=== PATIENT | female | born 1990 | race Caucasian/White ===

== ENCOUNTER 2018-10-11 10:45 | Inpatient (IN) | payer OTHER ==
[~2018-10-11] VITALS: Ht 167.6 cm; Wt 75.7 kg
[2018-10-11] MEDS ORDERED: RINGERS SOLUTION,LACTATED 1,000 ML IV ONE (10:59)
[2018-10-11] MEDS ORDERED: CITRIC ACID/SODIUM CITRATE 30 ML SOLUTION UDCUP PO ONE (11:00)
[2018-10-11] MEDS ORDERED: METOCLOPRAMIDE HCL 5 MG/ML 2 ML VIAL IVP ONE (11:00)
[2018-10-11] MEDS ORDERED: PREN1TAB80 PO (11:02)
[2018-10-11 11:19] VITALS: BP 114/69
[2018-10-11 11:29] LABS: BASOPHILS % (AUTO) 0.6 % (0.0-2.0); EOSINOPHILS % (AUTO) 1.4 % (1.0-6.0); HEMATOCRIT 41.4 % (36-46); HEMOGLOBIN 13.7 g/dL (12.0-16.0); LYMPHOCYTES # (AUTO) 1.5 K/uL (1.0-4.8); LYMPHOCYTES % (AUTO) 24.6 % (22.0-44.0); MEAN CORPUSCULAR HEMOGLOBIN 29.9 pg (26.0-34.0); MEAN CORPUSCULAR VOLUME 91 fL (80-100); MONOCYTES # (AUTO) 0.3 K/uL (0.1-1.0); MONOCYTES % (AUTO) 5.5 % (2.0-9.0); NEUTROPHILS # (AUTO) 4.2 K/uL (1.8-7.7); NEUTROPHILS % (AUTO) 67.9 % (40.0-70.0); PLATELET COUNT (AUTO) 188 K/uL (150-450); RED BLOOD CELL COUNT(AUTO) 4.57 MIL/uL (4.00-5.20); RED CELL DISTRIBUTION WIDTH 13.1 % (11.5-14.5)
[2018-10-11] MEDS ORDERED: OxyCODONE HCL/ACETAMINOPHEN 5-325 MG TABLET PO PRN ×2 (12:15→14:45)
[2018-10-11] MEDS ORDERED: FentaNYL CITRATE-PF 100 MCG/2 ML VIAL IVP PRN (12:15)
[2018-10-11] MEDS ORDERED: DiphenhydrAMINE HCL 50 MG/ML VIAL IVP PRN (12:15)
[2018-10-11] MEDS ORDERED: NALOXONE HCL 0.4 MG/ML VIAL IVP PRN (12:15)
[2018-10-11] MEDS ORDERED: ONDANSETRON HCL 4 MG/2 ML VIAL IVP PRN (12:15)
[2018-10-11] MEDS ORDERED: ONDANSETRON HCL 4 MG/2 ML VIAL ONE (12:21)
[2018-10-11] MEDS ORDERED: KETOROLAC TROMETHAMINE 30 MG/ML VIAL ONE (12:21)
[2018-10-11] MEDS ORDERED: FentaNYL CITRATE-PF 100 MCG/2 ML VIAL ONE (12:21)
[2018-10-11] MEDS ORDERED: MORPHINE SULFATE/PF 1 MG/ML 10 ML AMP ONE (12:21)
[2018-10-11] MEDS ORDERED: MIDAZOLAM HCL 2 MG/2 ML VIAL ONE (12:21)
[2018-10-11] MEDS ORDERED: DEXAMETHASONE SOD PHOS 4 MG/ML VIAL ONE (12:21)
[2018-10-11] MEDS ORDERED: BUPIVACAINE HCL/DEX-WATER/PF 0.75% 2 ML AMP ONE (12:22)
[2018-10-11] MEDS ORDERED: OXYTOCIN 30 UNITS/LACT RINGERS 500 ML IV ONE (14:42)
[2018-10-11] MEDS ORDERED: LANOLIN 7 GM OINTMENT TP PRN (14:45)
[2018-10-11] MEDS: RINGERS SOLUTION,LACTATED 1,000 ML IV SCH ×2 (18:02→23:26)
[2018-10-11] MEDS: KETOROLAC TROMETHAMINE 30 MG/ML VIAL IVP SCH (19:39)
[2018-10-11] MEDS: MAGNESIUM HYDROXIDE SUSPENSION 30 ML UDCUP PO SCH (19:40)
[2018-10-11] MEDS ORDERED: OXYGEN THERAPY IH SCH ×2 (20:00)
[2018-10-12] MEDS: KETOROLAC TROMETHAMINE 30 MG/ML VIAL IVP SCH ×2 (01:53→07:58)
[2018-10-12] MEDS ORDERED: EPHEDrine SULFATE 50 MG/ML VIAL IM ONE (05:04)
[2018-10-12] MEDS ORDERED: OXYTOCIN 10 UNITS/ML VIAL IM ONE (05:04)
[2018-10-12 05:55] LABS: BASOPHILS % (AUTO) 0.1 % (0.0-2.0); EOSINOPHILS % (AUTO) 0.1 % (1.0-6.0); HEMATOCRIT 30.2 % (36-46); HEMOGLOBIN 10.1 g/dL (12.0-16.0); LYMPHOCYTES # (AUTO) 1.8 K/uL (1.0-4.8); LYMPHOCYTES % (AUTO) 14.5 % (22.0-44.0); MEAN CORPUSCULAR HEMOGLOBIN 30.2 pg (26.0-34.0); MEAN CORPUSCULAR HGB CONC 33.7 G/dL (31.0-37.0); MEAN CORPUSCULAR VOLUME 90 fL (80-100); MONOCYTES # (AUTO) 0.7 K/uL (0.1-1.0); MONOCYTES % (AUTO) 5.6 % (2.0-9.0); NEUTROPHILS # (AUTO) 10.1 K/uL (1.8-7.7); NEUTROPHILS % (AUTO) 79.7 % (40.0-70.0); PLATELET COUNT (AUTO)-OB 159 K/uL (150-450); RED BLOOD CELL COUNT(AUTO) 3.35 MIL/uL (4.00-5.20); RED CELL DISTRIBUTION WIDTH 12.6 % (11.5-14.5)
[2018-10-12] MEDS: MAGNESIUM HYDROXIDE SUSPENSION 30 ML UDCUP PO SCH ×2 (07:58→20:57)
[2018-10-12] MEDS: IBUPROFEN 800 MG TABLET PO PRN ×2 (14:17→20:56)
[2018-10-12] MEDS: OxyCODONE HCL/ACETAMINOPHEN 5-325 MG TABLET PO PRN (19:07)
[2018-10-13] MEDS: IBUPROFEN 800 MG TABLET PO PRN ×2 (05:37→14:03)
[2018-10-13] MEDS: MAGNESIUM HYDROXIDE SUSPENSION 30 ML UDCUP PO SCH (09:04)
[2018-10-13] MEDS ORDERED: SIMETHICONE 80 MG CHEWABLE TABLET CHEW ONE (09:15)
[2018-10-13] MEDS ORDERED: IBUP-2071 PO (12:34)
[2018-10-13] MEDS ORDERED: DSS100 PO (12:35)
[2018-10-13] MEDS ORDERED: FERR-89 PO (12:36)
[2018-10-13] MEDS ORDERED: PERCT PO (13:19)
[2018-10-13] MEDS: OxyCODONE HCL/ACETAMINOPHEN 5-325 MG TABLET PO PRN (14:03)
== END 2018-10-13 14:05 | disposition home or self-care (01) | DRG 788 ==
LOC: 4S 10:45 → OBSVTOIN 10:45 → 4S 21:47
PROVIDERS: ADMIT Obstetrics & Gynecology; ATTEND Obstetrics & Gynecology
PROC: 10D00Z1 Extraction of Products of Conception, Low, Open Approach (ICD-10-PCS; principal; 2018-10-11)
DX: O34.211 Maternal care for low transverse scar from previous cesarean delivery (principal); Z3A.39 39 weeks gestation of pregnancy; Z37.0 Single live birth
CPT/HCPCS: 86850; 86900; 86901; 87081; J0690; J1100; J1885; J2250; J2405; J2590; J2765; J3010; J3490; J7120